=== PATIENT | male | born 1980 | race Caucasian/White ===

== ENCOUNTER 2017-09-18 22:27 | Emergency (ER) | payer OTHER, SELFPAY ==
[2017-09-18] MEDS ORDERED: Ibuprofen 600 MG TAB ONE (23:37)
--- NOTE | 2017-09-19 00:03 | RAD ---
THREE VIEWS RIGHT ANKLE 09/18/17 HISTORY: Trauma. Basketball injury. Pain. COMPARISON: None. FINDINGS: Mild lateral soft tissue swelling. Joint spaces are preserved. No fracture. IMPRESSION: Mild lateral soft tissue swelling. No fracture. POS: [facility]
--- NOTE | 2017-09-19 00:07 | RAD ---
THREE VIEWS OF THE RIGHT FOOT 09/18/17 HISTORY: Basketball injury. COMPARISON: None. FINDINGS: Lisfranc alignment is maintained. Joint spaces are preserved. No fracture. Well corticated ossified d ensity at the base of the fifth metatarsal, likely due to chronic process. IMPRESSION: No fracture. POS: [facility]
== END 2017-09-18 23:59 | disposition home or self-care (01) ==
LOC: SCSER 22:27
DX: S93.601A Unspecified sprain of right foot, initial encounter (principal); F17.210 Nicotine dependence, cigarettes, uncomplicated; W19.XXXA Unspecified fall, initial encounter; Y93.67 Activity, basketball